=== PATIENT | male | born 1970 | race Caucasian/White ===

== ENCOUNTER 2018-06-22 00:56 | Emergency (ER) | payer BC, OTHER ==
[2018-06-22] MEDS ORDERED: ONDANSETRON HCL IV 4 MG/2 ML VIAL IV ONE (01:13)
[2018-06-22] MEDS ORDERED: SODIUM CHLORIDE 0.9% 500 ML IV ONE (01:13)
[2018-06-22] MEDS ORDERED: SUCRALFATE 1 G/10 ML UD PO ONE (01:13)
--- NOTE | 2018-06-22 01:20 | Emergency Department Record ---
History of Present Illness - General Chief Complaint: Abdominal Pain Stated Complaint: ABDOMINAL PAIN Time Seen by Provider: 06/22/18 01:10 Source: Patient Mode of Arrival: Ambulatory Limitations: No limitations - History of Present Illness Initial Comments: The patient is here due to sharp upper AP for the last 4-5 hours. The pain is described as a sharp stabbing pain in the upper abdomen without radiation. He has had no nausea or vomiting but has had 4 loose watery stools today. The patient states the pain was much worse an hour ago and he has no hx of similar issues. The patient also has no hx of any abdominal surgeries. MD Complaint: Abdominal pain Onset/Timin -: Hour(s) Location: Epigastric, Periumbilical Radiation: Epigastric Severity: Moderate Severity scale (1-10): 8 Quality: Sharp Consistency: Constant Improves With: Nothing Worsens With: Eating, Other Associated Symptoms: Diarrhea - Related Data Previous Rx's Medication Instructions Recorded Sucralfate [Carafate] 1 gm PO QID #28 tablet 06/22/18 Allergies Allergy/AdvReac Type Severity Reaction Status Date / Time codeine AdvReac NAUSEA AND Verified 12/03/15 14:19 VOMITING Travel Screening - Travel/Exposure Within Last 30 Days Have you traveled within the last 30 days?: No - Travel Symptoms Symptom Screening: Diarrhea Review of Systems Constitutional: Denies: Chills, Fever Eyes: Denies: Eye discharge ENT: Denies: Congestion Respiratory: Denies: Cough, Dyspnea Past Medical History - SOCIAL HISTORY Smoking Status: Never smoker Alcohol Use: None Drug Use: None - RESPIRATORY Hx Respiratory Disorders: Yes Hx Bronchitis: Yes - CARDIOVASCULAR Hx Cardio Disorders: No - NEURO Hx Neuro Disorders: No - GI Hx GI Disorders: Yes Hx Reflux: Yes Hx Hiatal Hernia: Yes - Hx Genitourinary Disorders: No - ENDOCRINE Hx Endocrine Disorders: No - MUSCULOSKELETAL Hx Musculoskeletal Disorders: Yes Hx Back Injury: Yes (2000) - PSYCH Hx Psych Problems: No - HEMATOLOGY/ONCOLOGY Hx Hematology/Oncology Disorders: No Family Medical History Any Significant Family History?: Yes Hx Cancer: Father Physical Exam - General General Appearance: Alert, Oriented x3, Cooperative, No acute distress - Head Head exam: Atraumatic, Normocephalic, Normal inspection - Eye Eye exam: Normal appearance, PERRL, EOMI - Neck Neck exam: Normal inspection, Full ROM. negative: Tenderness - Respiratory Respiratory exam: Normal lung sounds bilaterally. negative: Respiratory distress - Cardiovascular Cardiovascular Exam: Regular rate, Normal rhythm, Normal heart sounds - GI/Abdominal GI/Abdominal exam: Soft, Normal bowel sounds, Tenderness (There is mild upper abdominal tenderness.). negative: Distended, Guarding, Rebound, Rigid - Extremities Extremities exam: Normal inspection, Full ROM, Normal capillary refill. negative: Tenderness - Back Back exam: Reports: Normal inspection - Neurological Neurological exam: Alert, Normal gait, Oriented X3. negative: Abnormal gait, Motor sensory deficit Course Vital Signs 06/22/18 01:02 Temperature 97.7 F Pulse Rate 59 L Respiratory 20 Rate Blood Pressure 144/94 Pulse Ox 98 - Reevaluation(s) Reevaluation #1: The patient is doing better at this time but is still having significant pain. On exam his abdomen is soft with only mild upper abdominal tenderness. We will order a CT scan for further evaluation. 06/22/18 02:16 Reevaluation #2: The patient is doing a lot better at this time. His pain is down to a 2/10 and he is resting comfortably. I did consult with Dr. Michelle and he does not believe the patient needs to stay in the hospital for this and does think he can see him in the [facility]. 06/22/18 03:54 Medical Decision Making - Lab Data Result diagrams: 06/22/18 01:20 06/22/18 01:20 Disposition Disposition: Discharge Clinical Impression: Abdominal pain Qualifiers: Abdominal location: unspecified location Qualified Code(s): R10.9 - Unspecified abdominal pain Disposition: Home, Self-Care Condition: (2) Stable Instructions: Abdominal Pain (ED) Additional Instructions: Please take the Carafate as directed and please see Dr. Michelle in the Specialty clinic next week. Please return to the ER in 8 hours for recheck and eat a very bland diet. Off work today. Prescriptions: Sucralfate [Carafate] 1 gm PO QID #28 tablet Referrals: [facility] [Provider Group] Forms: Patient Portal Access Time of Disposition: 04:40 Quality - Quality Measures Quality Measures: N/A - Blood Pressure Screening View Details: Yes Does Patient Have Any of the Following: No Blood Pressure Classification: Hypertensive Reading Systolic Measurement: 144 Diastolic Measurement: 94 Screening for High Blood Pressure: < First Hypertensive BP, F/U Documented > [ G8950] First Hypertensive Follow-up Interventions: Referral to alternative/primary care provider.
[2018-06-22 01:30] LABS: BASO % 0.3 % (0-6); EOS % 1.5 % (0-6); GRAN % 75.3 % (47-80); HEMATOCRIT 42.8 % (42.0-52.0); HEMOGLOBIN 14.2 gm/dl (14.0-18.0); LYMPH % 15.2 % (16-45); MEAN CELL VOLUME 82.8 fl (81-97); MEAN CORPUSCULAR HEMOGLOBIN 27.5 pg (27-33); MEAN CORPUSCULAR HGB CONC 33.2 g/dl (32-36); MEAN PLATELET VOLUME 11.5 fl (7.4-10.4); MONO % 7.7 % (0-9); PLATELET COUNT 185 K/uL (130-400); RED BLOOD COUNT 5.17 M/uL (4.40-5.70); RED CELL DISTRIBUTION WIDTH 15.4 % (11.5-14.5); WHITE BLOOD COUNT W/O DIFF 7.5 K/uL (4.2-12.2)
[2018-06-22 01:41] LABS: BLOOD UREA NITROGEN 17 mg/dL (6-20); EST GLOMERULAR FILTRATION RATE > 60 mL/min
[2018-06-22 01:42] LABS: TOTAL PROTEIN 6.4 g/dL (6.6-8.7)
[2018-06-22 01:44] LABS: GLUCOSE,RANDOM 155 mg/dL (74-109)
[2018-06-22] MEDS ORDERED: MAGNESIUM HYDROXIDE/AL HYDROX 30 ML, LIDOCAINE VISC 2% 15ML 15 ML PO ONE ×2 (01:45)
[2018-06-22 01:46] LABS: ALBUMIN 4.1 g/dL (4.0-5.0); ALT/SGPT 21 U/L (<41); AST/SGOT 19 U/L (10.0-50.0); BILIRUBIN,DIRECT < 0.2 mg/dL (0-0.3)
[2018-06-22 01:47] LABS: ALKALINE PHOSPHATASE 58 U/L (40-129); LIPASE 26 U/L (13-60)
[2018-06-22 02:12] LABS: URINE APPEARANCE CLEAR; URINE BILIRUBIN NEGATIVE (NEGATIVE); URINE BLOOD NEGATIVE (NEGATIVE); URINE COLOR YELLOW; URINE GLUCOSE (UA) NEGATIVE (NEGATIVE); URINE KETONE NEGATIVE (NEGATIVE); URINE LEUKOCYTE ESTERASE NEGATIVE (NEGATIVE); URINE NITRITE NEGATIVE (NEGATIVE); URINE PROTEIN NEGATIVE (NEGATIVE); URINE UROBILINOGEN 0.2 E.U./dL (0.20 - 1.00)
[2018-06-22] MEDS ORDERED: KETOROLAC 30 MG/ML VIAL IVP ONE (04:14)
--- NOTE | 2018-06-23 11:03 | CT SCAN REPORT ---
EXAM: EMERGENCY CT OF THE ABDOMEN AND PELVIS WITH CONTRAST HISTORY: UPPER ABDOMINAL PAIN FOR EIGHT HOURS. TECHNIQUE: Axial CT scan of the abdomen and pelvis was performed following both oral and IV contrast administration. Please see the medical record for contrast specifics. A preliminary report was provided by [facility]. Comparison: No prior CT with which to compare. FINDINGS: There is a calcification near the gallbladder, but appears to be outside of the gallbladder with no definite actual calcified gallstones identified. No inflammatory type changes seen in the pericholecystic adipose tissue to suggest acute cholecystitis. There is some mild periportal edema in the liver which is a nonspecific finding. No focal hepatic mass identified. No definite splenic, adrenal, pancreatic, or renal mass identified. Some prostate calcification is present. There is moderate diverticulosis in the left side of the colon, but no definite diverticulitis evident. The appendix is visualized and appears negative with no appendicitis evident. Minor bibasilar linear fibrosis or discoid atelectasis. No free intraperitoneal air or free intraperitoneal fluid identified. There is a relatively large hiatal hernia present. There is probably a vertebral body hemangioma in the body of T9 measuring about 1.5 cm in size. IMPRESSION: 1. LARGE HIATAL HERNIA. 2. MODERATE DIVERTICULOSIS LEFT SIDE OF THE COLON, BUT NO DIVERTICULITIS EVIDENT. 3. THE APPENDIX APPEARS NEGATIVE. NO FREE AIR OR FREE FLUID EVIDENT. 4. SOME PERIPORTAL EDEMA IN THE LIVER. 5. PROSTATE CALCIFICATION. JOB NUMBER: [id number] [facility]
== END 2018-06-22 04:57 | disposition home or self-care (01) ==
LOC: ER 00:56
DX: R10.13 Epigastric pain (principal); R10.33 Periumbilical pain; R11.0 Nausea; R19.7 Diarrhea, unspecified
CPT/HCPCS: 99281 ×2; 99284 ×2; 96374; 96375; 83605; 83690; 85025; 80076; 80048; 81003; 74177; Q9967; J1885; J2405

== ENCOUNTER 2018-06-22 16:36 | Emergency (ER) | payer BC ==
--- NOTE | 2018-06-22 17:00 | Emergency Department Record ---
History of Present Illness - General Chief Complaint: Recheck - Other Stated Complaint: RECHECK Time Seen by Provider: 06/22/18 16:59 - History of Present Illness Onset/Timin -: Days(s) - Related Data Previous Rx's Medication Instructions Recorded Sucralfate [Carafate] 1 gm PO QID #28 tablet 06/22/18 Allergies Allergy/AdvReac Type Severity Reaction Status Date / Time codeine AdvReac NAUSEA AND Verified 06/22/18 16:48 VOMITING Travel Screening - Travel/Exposure Within Last 30 Days Have you traveled within the last 30 days?: No - Travel/Exposure Within Last Year Have you traveled outside the [place] in the last year?: No - Additonal Travel Details Have you been exposed to anyone with a communicable illness?: No - Travel Symptoms Symptom Screening: None Past Medical History - SOCIAL HISTORY Smoking Status: Never smoker Alcohol Use: None Drug Use: None - RESPIRATORY Hx Respiratory Disorders: Yes Hx Bronchitis: Yes - CARDIOVASCULAR Hx Cardio Disorders: No - NEURO Hx Neuro Disorders: No - GI Hx GI Disorders: Yes Hx Reflux: Yes Hx Hiatal Hernia: Yes - Hx Genitourinary Disorders: No - ENDOCRINE Hx Endocrine Disorders: No - MUSCULOSKELETAL Hx Musculoskeletal Disorders: Yes Hx Back Injury: Yes (2000) - PSYCH Hx Psych Problems: No - HEMATOLOGY/ONCOLOGY Hx Hematology/Oncology Disorders: No Family Medical History Any Significant Family History?: No Hx Cancer: Father Course Vital Signs 06/22/18 16:44 Temperature 98.0 F Pulse Rate 63 Respiratory 18 Rate Blood Pressure 146/89 Pulse Ox 100 Disposition Disposition: Discharge Clinical Impression: Abdominal pain Qualifiers: Qualified Code(s): R10.10 - Upper abdominal pain, unspecified Disposition: Home, Self-Care Condition: (1) Good Instructions: Abdominal Pain (ED) Additional Instructions: Light diet, return as needed...fever, vomiting, pain. Quality - Blood Pressure Screening Does Patient Have Any of the Following: No Blood Pressure Classification: Pre-Hypertensive BP Reading Systolic Measurement: 146 Diastolic Measurement: 89 Screening for High Blood Pressure: < Pre-Hypertensive BP, F/U Documented > [ G8950]
== END 2018-06-22 17:24 | disposition home or self-care (01) ==
LOC: ER 16:36
DX: R10.10 Upper abdominal pain, unspecified (principal)

== ENCOUNTER 2018-07-02 12:24 | Day surgery (SDC) | payer BC ==
[2018-07-02] MEDS ORDERED: LIDOCAINE 2% MDV (20MG/ML) 20ML VIAL IV ONE (12:25)
[2018-07-02] MEDS ORDERED: PROPOFOL 10 MG/ML VIAL IV ONE (12:25)
[2018-07-02] MEDS ORDERED: FENTANYL PF 100MCG/2ML VIAL IV ONE (12:25)
--- NOTE | 2018-07-03 08:21 | Operative Note ---
DATE OF SURGERY: OPERATION: ESOPHAGOGASTRODUODENOSCOPY with biopsy. PREOPERATIVE DIAGNOSIS: Upper abdominal pain of unclear etiology. POSTOPERATIVE DIAGNOSES: 1. A 6 cm hiatal hernia. 2. 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 3. Irregular GE junction. PROCEDURE: After informed consent was obtained from the patient, he was placed in the left lateral decubitus position in the endoscopy suite, sedated and monitored by the department of anesthesia. A well-lubricated [id number] gastroscope was placed in the posterior oropharynx and under direct visualization passed to the proximal esophagus. The endoscope was advanced through the proximal, mid, and distal esophagus. The GE junction was located at 38 cm with the diaphragmatic hiatus located at 44 cm suggestive of a 6 cm hiatal hernia. The squamocolumnar border was irregular. No ulcers, strictures, or varices were seen. the subdiaphragmatic stomach was unremarkable; however, J-turn views of the hernia revealed multiple Noel's ulcers. The endoscope was straightened and advanced into the duodenal bulb and sweep, which were unremarkable. Again, J-turn views of the proximal stomach revealed a hernia and Noel's ulcers. No stigmata of recent hemorrhage, fresh or old blood was seen. The endoscope was straightened. Antral biopsies were obtained. GE junction biopsies were obtained. The endoscope was removed from the patient. RECOMMENDATIONS: I would suggest the patient discontinue his Carafate and start a proton pump inhibitor. We will await results of the HIDA scan that is apparently going to be performed tomorrow. As always, thank you for allowing me to participate in the healthcare of your patients. CC: Sam Michelle, DO Dr. Omero MELTON
== END 2018-07-02 14:02 | disposition home or self-care (01) ==
LOC: HOP 12:24
PROVIDERS: ATTEND Internal Medicine Gastroenterology
DX: R10.10 Upper abdominal pain, unspecified (principal); K44.9 Diaphragmatic hernia without obstruction or gangrene; K25.9 Gastric ulcer, unspecified as acute or chronic, without hemorrhage or perforation; K31.89 Other diseases of stomach and duodenum; K21.9 Gastro-esophageal reflux disease without esophagitis
CPT/HCPCS: 43239; 00731; J3010

== ENCOUNTER 2019-05-13 23:44 | Emergency (ER) | payer BC ==
[2019-05-14] MEDS ORDERED: 0.9 % SODIUM CHLORIDE 1,000 ML BAG IV ONE
[2019-05-14] MEDS ORDERED: FAMOTIDINE IV 20 MG/2 ML VIAL IVP ONE
[2019-05-14] MEDS ORDERED: ONDANSETRON HCL IV 4 MG/2 ML VIAL IV ONE
[2019-05-14] MEDS ORDERED: ONDANSETRON HCL IV 4 MG/2 ML VIAL IVP ONE (00:06)
[2019-05-14] MEDS ORDERED: HYDROMORPHONE HCL 2 MG/ML VIAL IVP ONE (00:06)
--- NOTE | 2019-05-14 00:08 | Emergency Department Record ---
History of Present Illness - General Chief Complaint: Abdominal Pain Stated Complaint: ABDOMINAL PAIN Time Seen by Provider: 05/13/19 23:59 Source: Patient Mode of Arrival: Ambulatory - History of Present Illness Initial Comments: The patient began having epigastric AP around 1600 on afternoon, 05-13-19. Around 1700 he had a BM with no relief. He states he felt better by 1830 and ate a burger and fries. By 193 he was 9/10 pain with no vomiting but diaphoretic from the pain. He took 2 ibuprofen with no relief.He states he has a known hiatal hernia. MD Complaint: Abdominal pain Onset/Timin -: Hour(s) Location: LUQ, RUQ Radiation: None Migration to: No migration Severity scale (1-10): 9 Quality: Other Consistency: Constant Improves With: Nothing Worsens With: Nothing - Related Data Previous Rx's Medication Instructions Recorded Sucralfate [Carafate] 1 gm PO QID #28 tablet 06/22/18 Allergies Allergy/AdvReac Type Severity Reaction Status Date / Time codeine AdvReac NAUSEA AND Verified 06/22/18 16:48 VOMITING Travel Screening - Travel/Exposure Within Last 30 Days Have you traveled within the last 30 days?: No - Travel/Exposure Within Last Year Have you traveled outside the [place] in the last year?: No - Additonal Travel Details Have you been exposed to anyone with a communicable illness?: No - Travel Symptoms Symptom Screening: None Review of Systems Reviewed: No additional complaints except as noted below Constitutional: Reports: As per HPI. Denies: Chills, Fever, Malaise, Night sweats, Weakness, Weight change Eyes: Reports: As per HPI. Denies: Eye discharge, Eye pain, Photophobia, Vision change ENT: Reports: As per HPI. Denies: Congestion, Dental pain, Ear pain, Epistaxis, Hearing loss, Throat pain Respiratory: Reports: As per HPI. Denies: Cough, Dyspnea, Hemoptysis, Stridor, Wheezes Cardiovascular: Reports: As per HPI. Denies: Arrhythmia, Chest pain, Dyspnea on exertion, Edema, Murmurs, Orthopnea, Palpitations, Paroxysmal nocturnal dyspnea, Rheumatic Fever, Syncope Endocrine: Reports: As per HPI. Denies: Fatigue, Heat or cold intolerance, Polydipsia, Polyuria Gastrointestinal: Reports: As per HPI. Denies: Abdominal pain, Constipation, Diarrhea, Hematemesis, Hematochezia, Melena, Nausea, Vomiting Genitourinary: Reports: As per HPI. Denies: Dysuria, Frequency, Hematuria, Incontinence, Retention, Testicular pain, Testicular mass, Urgency Musculoskeletal: Reports: As per HPI. Denies: Arthralgia, Back pain, Gout, Joint swelling, Myalgia, Neck pain Skin: Reports: As per HPI. Denies: Bruising, Change in color, Change in hair/nails, Lesions, Pruritus, Rash Neurological: Reports: As per HPI. Denies: Abnormal gait, Confusion, Headache, Numbness, Paresthesias, Seizure, Tingling, Tremors, Vertigo, Weakness Psychiatric: Reports: As per HPI. Denies: Anxiety, Auditory hallucinations, Depression, Homicidal thoughts, Suicidal thoughts, Visual hallucinations Hematological/Lymphatic: Reports: As per HPI. Denies: Anemia, Blood Clots, Easy bleeding, Easy bruising, Swollen glands Past Medical History - SOCIAL HISTORY Smoking Status: Never smoker Alcohol Use: None Drug Use: None - RESPIRATORY Hx Respiratory Disorders: No Hx Bronchitis: No - CARDIOVASCULAR Hx Cardio Disorders: No - NEURO Hx Neuro Disorders: No - GI Hx GI Disorders: Yes Hx Reflux: Yes Hx Hiatal Hernia: Yes - Hx Genitourinary Disorders: No - ENDOCRINE Hx Endocrine Disorders: No - MUSCULOSKELETAL Hx Musculoskeletal Disorders: Yes Hx Back Injury: Yes (2000) - PSYCH Hx Psych Problems: No - HEMATOLOGY/ONCOLOGY Hx Hematology/Oncology Disorders: No Family Medical History Any Significant Family History?: Yes Hx Cancer: Father Physical Exam - General General Appearance: Alert, Oriented x3, Cooperative, Moderate distress - Head Head exam: Normal inspection - Eye Eye exam: Normal appearance, PERRL, EOMI. negative: Conjunctival injection, Nystagmus Pupils: Normal accommodation - ENT ENT exam: Normal exam, Mucous membranes moist, Normal external ear exam, Normal orophraynx, TM's normal bilaterally Ear exam: Normal external inspection. negative: External canal tenderness Nasal Exam: Normal inspection. negative: Discharge, Sinus tenderness Mouth exam: Normal external inspection, Tongue normal Teeth exam: Normal inspection. negative: Dental caries Throat exam: Normal inspection. negative: Tonsillar erythema, Tonsillar exudate - Neck Neck exam: Normal inspection, Full ROM. negative: Lymphadenopathy, Meningismus, Tenderness - Respiratory Respiratory exam: Normal lung sounds bilaterally. negative: Respiratory distress - Cardiovascular Cardiovascular Exam: Regular rate, Normal rhythm, Normal heart sounds - GI/Abdominal GI/Abdominal exam: Soft, Normal bowel sounds, Tenderness (epigastric and periumbilical tenderness on palpation) - Rectal Rectal exam: Deferred - exam: Deferred - Extremities Extremities exam: Normal inspection, Full ROM, Normal capillary refill. negative: Calf tenderness, Pedal edema, Tenderness - Back Back exam: Reports: Normal inspection, Full ROM. Denies: CVA tenderness (R), CVA tenderness (L), Muscle spasm, Rash noted, Tenderness - Neurological Neurological exam: Alert, CN II-XII intact, Normal gait, Oriented X3, Reflexes normal. negative: Motor sensory deficit - Psychiatric Psychiatric exam: Normal affect, Normal mood - Skin Skin exam: Dry, Intact, Normal color, Warm Course Vital Signs 05/13/19 23:49 Temperature 97.5 F L Pulse Rate [ 60 Pulse Ox Probe] Respiratory 24 Rate Blood Pressure 161/113 [Left Arm] Pulse Ox 100 - Reevaluation(s) Reevaluation #1: Patient ambulated to bathroom and gave a urine sample. Given dilaudid prior to CT scan. On return from CT scan patient states he no longer has pain. He states this pain was different from his prior hiatal hernia pain last year. 05/14/19 00:48 Reevaluation #2: The patient states he has an appointment with his GI Dr. Gutierres later this month already and he can follow up on his Hiatal hernia and his Gall bladder. His PCP Dr. Garcia can order a hida scan for him, and follow up on his urine infection once he has completed antibiotics for it. Al results discussed and questions answered. 05/14/19 01:25 Medical Decision Making - Management Options MDM Management: Additional Work-up Planned (e.g. ADM/Transfer/OP Study) (Dr. Gutierres to follow his hiatal hernia and GI workup already arranged previously; Dr. Morales will follow his UTI, and order Hida scan.) - Data Complexity MDM Data: Labs Ordered and/or Reviewed, X-Ray Ordered and/or Reviewed (Abd/Pelvis contrast CT scan: 8.9cm paraesophageal hernia; punctate gallbladder calcifications which could be granular gallstones or small calcified gallbladder polyps. No sign of cholecystitis or biliary tract obstruction. Per [facility].) - Lab Data Result diagrams: 05/14/19 00:00 05/14/19 00:00 - EKG Data -: EKG Interpreted by Me EKG: No Acute Changes (Sinus baldemar at 48/minute. Anterior leads with hyperacute ST-T changes, no prior for comparison.) Disposition Disposition: Discharge Clinical Impression: Hiatal hernia without gangrene and obstruction UTI (urinary tract infection) Qualifiers: Urinary tract infection type: acute cystitis Hematuria presence: without hematuria Qualified Code(s): N30.00 - Acute cystitis without hematuria Disposition: Home, Self-Care Condition: (1) Good Instructions: Abdominal Pain (ED) Additional Instructions: Clear liquids overnight and fluids as tolerated. Take Bactrim DS twice daily for 10 days. Low fat diet. Follow up with PCP Dr. Garcia for Hida scan and repeat UA in 10days. Follow up with Dr. Gutierres as previously arranged for upper and lower GI workup later this month. Forms: Patient Portal Access Quality - Quality Measures Quality Measures: N/A - Blood Pressure Screening Does Patient Have Any of the Following: No Blood Pressure Classification: Hypertensive Reading Systolic Measurement: 130 Diastolic Measurement: 98 Screening for High Blood Pressure: < Pre-Hypertensive BP, F/U Documented > [G8950] Pre-Hypertensive Follow-up Interventions: Follow-up with rescreen every year.
[2019-05-14 00:13] LABS: ABSOLUTE NEUTROPHIL COUNT 4.13; BASO % 0.3 % (0-6); EOS % 1.8 % (0-6); GRAN % 62.8 % (47-80); HEMATOCRIT 43.5 % (42.0-52.0); HEMOGLOBIN 14.8 gm/dl (14.0-18.0); LYMPH % 24.3 % (16-45); MEAN CELL VOLUME 83.7 fl (81-97); MEAN CORPUSCULAR HEMOGLOBIN 28.5 pg (27-33); MEAN PLATELET VOLUME 11.7 fl (7.4-10.4); MONO % 10.8 % (0-9); PLATELET COUNT 208 K/uL (130-400); RED CELL DISTRIBUTION WIDTH 14.9 % (11.5-14.5); WHITE BLOOD COUNT W/O DIFF 6.6 K/uL (4.2-12.2)
[2019-05-14 00:20] LABS: URINE APPEARANCE CLEAR; URINE BILIRUBIN NEGATIVE (NEGATIVE); URINE BLOOD NEGATIVE (NEGATIVE); URINE COLOR YELLOW; URINE GLUCOSE (UA) NEGATIVE (NEGATIVE); URINE KETONE NEGATIVE (NEGATIVE); URINE LEUKOCYTE ESTERASE NEGATIVE (NEGATIVE); URINE NITRITE POSITIVE (NEGATIVE); URINE PROTEIN NEGATIVE (NEGATIVE); URINE UROBILINOGEN 0.2 E.U./dL (0.20 - 1.00)
[2019-05-14 00:24] LABS: BLOOD UREA NITROGEN 18 mg/dL (6-20); EST GLOMERULAR FILTRATION RATE > 60 mL/min; LIPASE 24 U/L (13-60); TOTAL PROTEIN 6.7 g/dL (6.6-8.7)
[2019-05-14 00:26] LABS: GLUCOSE,RANDOM 154 mg/dL (74-109)
[2019-05-14 00:29] LABS: URINE BACTERIA FEW; URINE EPITHELIAL CELLS 0 - 2 (FEW); URINE MUCUS LIGHT; URINE RBC 0 - 2 (NONE SEEN); URINE WBC 0 - 2 (0-2/hpf)
[2019-05-14 00:29] LABS: ALBUMIN 4.3 g/dL (4.0-5.0); ALKALINE PHOSPHATASE 66 U/L (40-129); ALT/SGPT 28 U/L (<41); AST/SGOT 19 U/L (10.0-50.0)
[2019-05-14 00:32] LABS: BILIRUBIN,DIRECT < 0.2 mg/dL (0-0.3)
[2019-05-14] MEDS ORDERED: CEFTRIAXONE SODIUM 1 GM in 0.9 % SODIUM CHLORIDE 100ML 100 ML IVPB ONE (00:56)
--- NOTE | 2019-05-16 20:22 | CT SCAN REPORT ---
EXAM: CT SCAN ABDOMEN/PELVIS W CONTRAST HISTORY: EPIGASTRIC PAIN THAT STARTED TONIGHT. COMPARISON: 06/22/2018. TECHNIQUE: CT of the abdomen and pelvis using 100 mL Omnipaque-300. FINDINGS: Lung bases: Clear. Liver, gallbladder, pancreas, and spleen: Liver appears normal. There might be a tiny noncalcified stone within the gallbladder lumen. There is no gallbladder wall thickening. The biliary tree is not dilated. The pancreas is normal. The spleen appears normal. Retroperitoneum: Adrenal glands are normal. Kidneys are normal. There is no hydronephrosis. In the retroperitoneum, there is no adenopathy or mass. Vascular: Aorta shows no aneurysm or dissection. Aortic branches are opacified with contrast. Inferior vena cava appears normal. Hepatic veins appear normal. Abdominal wall: Anterior abdominal wall is intact. No hernias or lesions. Mesentery: There is no free air or fluid. No sign of inflammation or mesenteric lymphadenopathy. GI tract: There is an extremely large hiatal hernia. The stomach shows no obstruction. Small bowel shows no distention or wall thickening. The terminal ileum is normal. Colon: There is no distention or wall thickening of the right colon and transverse colon. There is questionable submucosal edema of the descending colon continuing into the sigmoid colon. The appearance is similar to the 2018 exam. The finding is probably normal for this patient. There are numerous diverticula of the left colon without sign of any adjacent inflammation. Appendix: The appendix has a tiny appendicolith within it but there is no current sign of inflammation. Rectum: The rectum appears normal. Pelvis: The bladder appears normal. Prostate gland is unremarkable. Musculoskeletal: Pelvic musculature is unremarkable. No suspicious bony lesions in the pelvis or sacrum. Lumbar spine is unremarkable. IMPRESSION: 1. SPECIFIC ACUTE ABDOMEN OR PELVIS PATHOLOGY NOT EVIDENT. 2. SMALL GALLSTONE SUSPECTED BUT THERE IS NO SIGN OF CHOLECYSTITIS OR BILIARY OBSTRUCTION. 3. DIVERTICULA WITHOUT EVIDENCE OF DIVERTICULITIS IN THE COLON. 4. LARGE HIATAL HERNIA. JOB [facility]BER: [id number] [facility]
== END 2019-05-14 02:10 | disposition home or self-care (01) ==
LOC: ER 23:44
DX: K44.9 Diaphragmatic hernia without obstruction or gangrene (principal); N30.00 Acute cystitis without hematuria; R10.84 Generalized abdominal pain
CPT/HCPCS: 99284 ×2; 96365; 96375; 83690; 85025; 80076; 80048; 81001; 84484; 74177; 93005; 93010; Q9967; J3490; J2405; J1170; J7030

== ENCOUNTER 2019-05-27 08:03 | Day surgery (SDC) | payer BC ==
[2019-05-27] MEDS ORDERED: PROPOFOL 10 MG/ML VIAL IV ONE (08:04)
[2019-05-27] MEDS ORDERED: MIDAZOLAM HCL 2MG/2ML VIAL IV ONE (08:04)
[2019-05-27] MEDS ORDERED: LIDOCAINE 2% MDV (20MG/ML) 20ML VIAL IV ONE (08:04)
--- NOTE | 2019-05-28 15:41 | Operative Note ---
OPERATION: COLONOSCOPY. PREOPERATIVE DIAGNOSIS: Family history of colon cancer in a first-degree relative. POSTOPERATIVE DIAGNOSIS: [id number] sigmoid diverticulosis, otherwise normal exam. PROCEDURE: After informed consent was obtained from the patient, he was placed in the left lateral decubitus position in the endoscopy suite, sedated and monitored by the department of anesthesia. Digital rectal exam was unremarkable. A well-lubricated [id number] colonoscope was inserted into the rectum and advanced to the cecum. Preparation quality was good to excellent. The cecum, cecal bulb, ileocecal valve, appendiceal orifice, ascending colon, transverse colon, and descending colon were free of inflammatory changes, mass lesions, or polyps. The sigmoid colon demonstrated [id number] diverticular changes. No polyps were seen. The rectum was unremarkable in forward and in J-turn views. The endoscope was straightened, the rectal ampulla deflated, and the endoscope was removed. RECOMMENDATIONS: I would suggest the patient follow a high-fiber diet. I would also recommend repeat exam in 5 years based on his family history. As always, thank you for allowing me to participate in the healthcare of your patients. GERONIMO
== END 2019-05-27 09:35 | disposition home or self-care (01) ==
LOC: HOP 08:03
PROVIDERS: ATTEND Internal Medicine Gastroenterology
DX: Z12.11 Encounter for screening for malignant neoplasm of colon (principal); Z80.0 Family history of malignant neoplasm of digestive organs
CPT/HCPCS: 00812; G0105